=== PATIENT | male | born 1975 | race Caucasian/White ===

== ENCOUNTER 2018-03-27 16:59 | Emergency (ER) | payer SELFPAY ==
[2018-03-27] MEDS ORDERED: LIDOCAINE 1% INJ-PF (10 MG/ML) 30 ML SDV INJ ONE (19:50)
[2018-03-27] MEDS ORDERED: LIDOCAINE 1% INJ (10 MG/ML) 10 ML MDV INJ ONE (19:51)
[2018-03-27] MEDS ORDERED: CLINDAMYCIN 900 MG/D5W RTU 900 MG/50 ML RTUPB IV ONE (19:57)
[2018-03-27] MEDS ORDERED: HYDROMORPHONE HCL INJ/PF 2 MG/ML AMPULE IV ONE (21:09)
[2018-03-27] MEDS ORDERED: CIPROFLOXACIN HCL/DEXAMETH OTIC DROP 7.5 ML AD ONE (21:19)
--- NOTE | 2018-03-27 22:03 | ER Document Report ---
ED Skin Rash/Insect Bite/Abscs - General Chief Complaint: Ear Pain Stated Complaint: KNOT UNDER ARM Time Seen by Provider: 03/27/18 19:22 Mode of Arrival: Ambulatory Information source: Patient Notes: Patient is a 42-year-old male comes emergency room with 2 complaints first is an abscess skin infection on the right axilla and chest which he states is been there for greater than 24 hours but worse today with bumps. And #2 is got severe pain in his right ear. Patient states the pain in the ear is worse than the bumps under the arm. Patient denies knowing any reason for having the skin infection and denies any trauma to his right ear. 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 TRAVEL OUTSIDE OF THE [place] IN LAST 30 DAYS: No - HPI Patient complains to provider of: Tender/swollen area Onset: Yesterday Onset/Duration: Sudden, Persistent Quality of pain: Sharp, Stabbing, Throbbing Pain Level: 5 Skin Character: Abscess, Erythema, Rash, Swelling, Tenderness, Thickening Skin Temperature: Hot Quality of rash: Painful Identify cause: No Exacerbated by: Movement Relieved by: Denies Similar symptoms previously: No Recently seen / treated by doctor: No - Related Data Allergies/Adverse Reactions: ketorolac [From Toradol] Allergy (Verified 03/27/18 17:03) Past Medical History - General Information source: Patient - Social History Smoking Status: Current Every Day Smoker Cigarette use (# per day): Yes Chew tobacco use (# tins/day): No Smoking Education Provided: Yes Frequency of alcohol use: None Drug Abuse: None Lives with: Family Family History: Reviewed & Not Pertinent Patient has suicidal ideation: No Patient has homicidal ideation: No Renal/ Medical History: Denies: Hx Peritoneal Dialysis Review of Systems - Review of Systems Constitutional: No symptoms reported EENT: Ear pain Cardiovascular: No symptoms reported Respiratory: No symptoms reported Gastrointestinal: No symptoms reported Genitourinary: No symptoms reported Male Genitourinary: No symptoms reported Musculoskeletal: No symptoms reported Skin: Other - Abscess Hematologic/Lymphatic: No symptoms reported Neurological/Psychological: No symptoms reported -: Yes All other systems reviewed and negative Physical Exam - Vital signs Vitals: Temp Pulse Resp BP Pulse Ox 98.4 F 96 16 129/65 H 98 03/27/18 17:04 03/27/18 17:04 03/27/18 17:04 03/27/18 17:04 03/27/18 17:04 Interpretation: Normal - Notes Notes: PHYSICAL EXAMINATION: GENERAL well-nourished well-developed 43-year-old male who is very dramatic in presentation with his abscess cellulitis earache. HEAD: Atraumatic, normocephalic. EYES: Pupils equal round and reactive to light, extraocular movements intact, sclera anicteric, conjunctiva are normal. ENT: Nares patent, oropharynx clear without exudates. Moist mucous membranes. Examined patient's right ear shows there to be mild erythema throughout the external canal with some swelling noted. There is no sign of a traumatic event although the TM is visualized there is no perforation and there is some mild fluid air levels causing it to bulge. Left ear is normal in appearance with no erythema and TM is not bulging. NECK: Normal range of motion, supple without lymphadenopathy LUNGS: Breath sounds clear to auscultation bilaterally and equal. No wheezes rales or rhonchi. HEART: Regular rate and rhythm without murmurs ABDOMEN: Soft, nontender, nondistended abdomen. No guarding, no rebound. No masses appreciated. Musculoskeletal: Normal range of motion, no pitting or edema. No cyanosis. NEUROLOGICAL: Cranial nerves grossly intact. Normal speech, normal gait. Normal sensory, motor exams PSYCH: Normal mood, normal affect. SKIN: Warm, Dry, normal turgor, no rashes or lesions noted. Examination of his right axilla shows that there is an area of induration just below the axilla on the lateral line that has 2 areas of induration that are more firm than fluctuant. There are minimal fluctuance at this time. There appears to be origin nation of the skin cellulitis most probable from a infected hair out from the axilla. Patient is very tender to touch at the area of induration and from there the extension of the skin goes about 30 cm down and about 15 cm across. There is moderate warmth to touch. The original abscessed area feels like a dual nodule 1 size of a quarter and the other is the size of a nickel. And these are the very tender areas. Course - Re-evaluation Re-evalutation: 03/27/18 22:03 As stated earlier patient is very dramatic. First words were he needs something for pain. He is a very well-built gentleman that appears that if he wanted to he can tear the wall down. I informed patient that I could not give him anything for pain until someone is here to sign for him. This seemed to aggravate him even more to where he was not a very happy man and I had Collins Paramjit renteria another mid-level also come and take a look and get his opinion of the abscessed area which she feels we should attempt to open. While we were looking at it patient would not lay still writhing around in the bed and calling his mother to come and sit with him on the phone so that we can give him something for pain because he is never hurt this bad in his life. Patient' s mother finally arrived and is sitting with patient when I went in to do the I& D. I had given patient 1 mg of Dilaudid to calm him down so that I could work on his arm. The area was cleaned and we did I&D that spot and he did cooperate relatively well. The I&D was not real successful was more inflamed tissue than anything else we did send out a culture and I did use some iodoform to keep it open. I informed patient to return in 48 hours to have the packing removed. I gave him IV antibiotics while he was here. He tolerated this fairly well after the medication. - Vital Signs Vital signs: Temp Pulse Resp BP Pulse Ox 98.4 F 96 16 129/65 H 98 03/27/18 17:04 03/27/18 17:04 03/27/18 17:04 03/27/18 17:04 03/27/18 17:04 Procedures - Incision and Drainage Right Arm Type: Simple Anesthetic type: 1% Lidocaine mL's of anesthetic: 8 Blade size: 11 I&D procedure: Betadine prep applied, Iodoform packing placed Incision Method: Incision made by scalpel Amount/type of drainage: Small amount of bloody-charly white pus Notes: 03/27/18 22:07 As stated that it was a difficult I&D and there was limited amount of return the area was very firm and superficial and tender. I feel that we give patient IV antibiotics have given him the good Rx information of informed him to return in 48 hours. Discharge - Discharge Clinical Impression: Abscess Cellulitis Qualifiers: Site of cellulitis: extremity Site of cellulitis of extremity: axilla Laterality: right Qualified Code(s): L03.111 - Cellulitis of right axilla Otitis externa Qualifiers: Otitis externa type: unspecified type Chronicity: acute Laterality: right Qualified Code(s): H60.501 - Unspecified acute noninfective otitis externa, right ear Sinusitis Qualifiers: Sinusitis location: maxillary Chronicity: acute Recurrence: non-recurrent Qualified Code(s): J01.00 - Acute maxillary sinusitis, unspecified Condition: Stable Disposition: HOME, SELF-CARE Instructions: Abscess ([facility]), Cephalexin ([facility]), Use of Ear Drops ([facility]), Oral Narcotic Medication ([facility]), Otitis Externa ([facility]), Post Incision and Drainage, Clindamycin ([facility]) Additional Instructions: Home tonight and rest. Use warm moist compresses 3-4 times a day. This means a washrag as warm as you can stand it from the sink do not put it in the microwave. Do not get in a whirlpool or soak in a bathtub. You may take a shower and allow the water to run over top of the string. Change the dressing 2 -3 times a day when dirty when wet or when bloody or full of pus. You do not have to start the antibiotic orally till tomorrow. I have given you the application forGoodR you may place his on your phone and when you take the prescription to the pharmacy show that to the pharmacist.x the cheapest place to get the clindamycin orally I prescribed it is at [facility] for $27. You should also build to get a discount on the other medications. I have given you the eardrops here use those eardrops 4 drops in the right ear twice a day until the pain is gone. This should be only about 7 days. If the string comes out is not a huge problem continue with the moist compresses. If for any reason that it looks worse or increasing amount of pain come back earlier and let us take a look at it. It is best if you can keep this out of the heat and dirty environment until we pulled out strain. You can also take 800 mg of ibuprofen 3 times a day with food which will help with inflammation which is what going on with the ear as well. I have given you some medication to help dry up the sinuses and the fluid behind the ear which will help stop the pain and discomfort. The antibiotics are for your abscess and skin infection. Should you have any concerns or problems prior to coming back in 48 hours please feel free to return sooner. Prescriptions: Cephalexin Monohydrate [Keflex 500 mg Capsule] 500 mg PO Q6H 7 Days #28 capsule Clindamycin HCl 300 mg PO Q6 #40 capsule Oxycodone HCl/Acetaminophen [Percocet 5-325 mg Tablet] 1 tab PO Q6 #12 tablet Pseudoephedrine HCl [Sudafed 12 Hour] 120 mg PO BID #20 tablet.er Forms: Elevated Blood Pressure, Smoking Cessation Education, Return to Work Referrals: [facility] [NO LOCAL MD] - Follow up as needed
[2018-03-27 22:44] VITALS: BP 131/87
== END 2018-03-27 22:43 | disposition home or self-care (01) ==
LOC: ER 16:59
DX: L03.111 Cellulitis of right axilla (principal); H60.501 Unspecified acute noninfective otitis externa, right ear; J01.00 Acute maxillary sinusitis, unspecified; F17.210 Nicotine dependence, cigarettes, uncomplicated
CPT/HCPCS: 10061; 99283; 96375; 96365; 87070; 87205; 87077; 87186; A6266; J3490 ×2; J1170; 96374